=== PATIENT | female | born 1960 ===

== ENCOUNTER 2017-07-17 04:14 | Inpatient (IN) | payer OTHER ==
[2017-07-17] MEDS ORDERED: Metoclopramide 10 MG/2 ML SDV IVPUSH ONE (04:32)
[2017-07-17] MEDS ORDERED: diphenhydrAMINE 50 MG/ML SDV IVPUSH ONE (04:32)
--- NOTE | 2017-07-17 04:32 | EDM.PDOC ---
ED HPI GENERAL MEDICAL PROBLEM - General Chief Complaint: Neuro Symptoms/Deficits Stated Complaint: [facility] Time Seen by Provider: 07/17/17 04:25 Source of Information: Reports: Patient History Limitations: Reports: No Limitations - History of Present Illness INITIAL COMMENTS - FREE TEXT/NARRATIVE: 57-year-old female arrives in the ED per ambulance after she summoned them to her home in [place]. Patient states she awoke to get up to go to the bathroom but developed sudden onset of severe spinning of the room and had to lay back down. She states she then started vomiting. She called her brother for help and he arrives with her. She has never had any vertigo symptoms like this before. No recent falls or closed head injuries. She's had a right upper molar tooth extracted recently by the dentist due to an abscess formation and no antibiotics were used. She does have a headache which she grades 4-5. No neck pain. She prefers to lie still with her eyes closed on the right side. If she doesn't move the vertigo seems to settle. She did vomit once during movement of her head to the midline while in the ED on my examination. Emesis is bilious. Onset: Today Onset Date: 07/17/17 Onset Time: 03:40 Duration: Minutes: Location: Reports: Generalized Quality: Reports: Other Severity: Severe (Vertigo with intractable nausea and vomiting) Improves with: Reports: Rest (Holding really still controls the vertigo.) Worsens with: Reports: Movement (Any movement of the head sets it off with almost immediate nausea vomiting) Context: Reports: Other (Awoken from sleep with current symptoms.). Denies: Activity, Exercise, Lifting, Sick Contact, Trauma Associated Symptoms: Reports: Cough, Nausea/Vomiting (Recurrently since the onset of the vertigo.). Denies: Confusion, Chest Pain, Diaphoresis, Fever/ Chills, Headaches, Loss of Appetite, Malaise, Rash, Seizure, Shortness of Breath , Syncope Treatments LAST TRIMMER: Reports: Other (see below) (She was given initially Zofran ODT 4 mg and then given 4 mg IV as well by paramedics en route to the hospital. Headache has not seemed to help her vertigo at all.) Headache Pain Score (Numeric/FACES): 4 - Related Data Allergies Allergy/AdvReac Type Severity Reaction Status Date / Time Penicillins Allergy Hives Verified 07/17/17 04:25 Home Meds: Home Meds . [No Known Home Meds] 07/17/17 [History] Past Medical History HEENT History: Reports: Other (See Below) (Recent dental abscess treated by extraction of the tooth right upper molar.) Social & Family History - Living Situation & Occupation Living situation: Reports: Single, Occupation: Retired ED ROS GENERAL - Review of Systems Review Of Systems: See Below Constitutional: Reports: Malaise, Fatigue, Decreased Appetite (Because of infected tooth.). Denies: Fever, Chills HEENT: Reports: Dental Pain (Still has pain at site of recent dental extraction 5 days ago.), Vertigo Respiratory: Reports: Cough Cardiovascular: Denies: Chest Pain, Blood Pressure Problem, Claudication, Dyspnea on Exertion, Edema, Lightheadedness, Orthopnea, Palpitations Endocrine: Reports: No Symptoms GI/Abdominal: Reports: Nausea, Vomiting (Vomiting with vertigo symptoms.) : Reports: No Symptoms Musculoskeletal: Reports: Joint Pain (Back and knees at times.) Skin: Reports: No Symptoms Neurological: Reports: Dizziness, Other (Has not attempted to walk because she doesn't feel she would be able to do so.). Denies: Pre-Existing Deficit, Seizure, Syncope, Tingling, Trouble Speaking, Weakness Psychiatric: Reports: No Symptoms Hematologic/Lymphatic: Reports: No Symptoms Immunologic: Reports: No Symptoms ED EXAM, NEURO - Physical Exam Exam: See Below Exam Limited By: Physical Impairment (Prefers to lie very still in the right lateral decubitus position with her eyes closed to prevent vertigo symptoms.) General Appearance: Moderate Distress (Appears acutely ill.) Eye Exam: Bilateral Eye: Nystagmus (Worse when looking to the right and upwards. ), PERRL Ears: Normal External Exam, Normal TMs Throat/Mouth: Normal Inspection, Normal Lips, Normal Oropharynx Head Exam: Atraumatic, Normocephalic Neck: Normal Inspection. No: Full Range of Motion, Lymphadenopathy (R) Respiratory/Chest: No Respiratory Distress, Lungs Clear, Normal Breath Sounds, No Accessory Muscle Use Cardiovascular: Normal Peripheral Pulses, Regular Rate, Rhythm, No Edema, No Murmur, No Rub Neurological: Alert, Normal Mood/Affect, CN II-XII Intact, No Motor/Sensory Deficits, Oriented x 3. No: Normal Gait Extremities: Normal Inspection, Normal Range of Motion, Non-Tender, No Pedal Edema Psychiatric: Normal Affect, Normal Mood Skin Exam: Warm, Dry, Intact, Normal Color, No Rash Course - Vital Signs Last Recorded V/S: Last Vital Signs Temp 36.1 C 07/17/17 04:20 Pulse 80 07/17/17 04:20 Resp 18 07/17/17 04:20 BP 120/75 07/17/17 04:20 Pulse Ox 90 L 07/17/17 04:20 - Orders/Labs/Meds Orders: Active Orders 24 hr Category Date Time Status Head wo Cont [CT] Stat Exams 07/17/17 05:24 Taken Dextrose 5%-0.9% NaCl [Dextrose 5%-Normal Saline] 1,000 Med 07/17/17 04:45 Active ml IV ASDIRECTED Medication Orders Dextrose/Sodium Chloride (Dextrose 5%-Normal Saline) 1,000 mls @ 150 mls/hr IV ASDIRECTED DIMAS Last Admin: 07/17/17 04:42 Dose: 150 mls/hr Labs: Laboratory Tests 07/17/17 07/17/17 Range/Units 04:45 04:45 WBC 10.46 H (3.98-10.04) K/mm3 RBC 4.44 (3.98-5.22) M/mm3 Hgb 13.3 (11.2-15.7) gm/L Hct 40.1 (34.1-44.9) % MCV 90.3 (79.4-94.8) fl MCH 30.0 (25.6-32.2) pg MCHC 33.2 (32.2-35.5) g/dl RDW Std Deviation 43.5 (36.4-46.3) fL Plt Count 334 (182-369) K/mm3 MPV 9.5 (9.4-12.3) fl Neutrophils % (Manual) 65 H (40-60) % Band Neutrophils % 0 (0-10) % Lymphocytes % (Manual) 32 (20-40) % Atypical Lymphs % 0 % Monocytes % (Manual) 3 (2-10) % Eosinophils % (Manual) 0 L (0.7-5.8) % Basophils % (Manual) 0 L (0.1-1.2) Metamyelocytes % 0 Myelocytes % 0 Promyelocytes % 0 Blast Cells % 0 Nucleated RBCs 0.0 % WBC Morphology Comment Platelet Estimate Adequate RBC Morph Comment Normal Sodium 143 (136-145) mEq/L Potassium 3.7 (3.5-5.1) mEq/L Chloride 108 H (98-107) mEq/L Carbon Dioxide 29 (21-32) mEq/L Anion Gap 9.7 (5-15) BUN 19 H (7-18) mg/dL Creatinine 0.7 (0.55-1.02) mg/dL Est Cr Clr Drug Dosing 75.65 mL/min Estimated GFR (MDRD) > 60 (>60) mL/min BUN/Creatinine Ratio 27.1 H (14-18) Glucose 118 H (74-106) mg/dL Calcium 9.1 (8.5-10.1) mg/dL Magnesium 2.0 (1.8-2.4) mg/dl Total Bilirubin 0.3 (0.2-1.0) mg/dL AST 21 (15-37) U/L ALT 28 (14-59) U/L Alkaline Phosphatase 70 (46-116) U/L C-Reactive Protein < 0.2 (<1.0) mg/dL Total Protein 6.5 (6.4-8.2) g/dl Albumin 3.5 (3.4-5.0) g/dl Globulin 3.0 gm/dL Albumin/Globulin Ratio 1.2 (1-2) Meds: Medications Generic Name Dose Route Start Last Admin Trade Name Freq PRN Reason Stop Dose Admin Dextrose/Sodium Chloride 1,000 mls @ 150 mls/hr 07/17/17 04:45 07/17/17 04:42 Dextrose 5%-Normal Saline IV 150 mls/hr ASDIRECTED DIMAS Administration Discontinued Medications Generic Name Dose Route Start Last Admin Trade Name Freq PRN Reason Stop Dose Admin Diphenhydramine HCl 25 mg 07/17/17 04:32 07/17/17 04:48 Benadryl IVPUSH 07/17/17 04:33 25 mg ONETIME ONE Administration Meclizine HCl 25 mg 07/17/17 06:01 07/17/17 06:17 Antivert PO 07/17/17 06:02 25 mg ONETIME ONE Administration Metoclopramide HCl 7.5 mg 07/17/17 04:32 07/17/17 04:46 Reglan IVPUSH 07/17/17 04:33 7.5 mg ONETIME ONE Administration - Radiology Interpretation Free Text/Narrative:: 57-year-old female presents to the ED per ambulance with acute onset of severe vertigo with associated nausea and vomiting. Examination is difficult because of any movement causes her to start dry heaving and retching. She has received Zofran 4 mg ODT sublingually as well as 4 mg IV en route to the hospital by the paramedics with no effect. From what I could assess she has significant nystagmus on looking to the right side. There is mild nystagmus on looking to the left that was not sustained. She does have a mild headache. Not able to complete the neuro exam such as rapid alternating movements and finger to nose assessment due to current symptoms. Plan Reglan 7.5 mg IV with Benadryl 25 mg IV to stave off any dystonic reaction. Will attempt neuro exam once vertigo seems to stabilize. I do have concerns with headache that she may have central nervous system induced vertigo. Vital signs are otherwise stable. - Re-Assessments/Exams Free Text/Narrative Re-Assessment/Exam: 07/17/17 05:23 she is able to roll onto her back with mild dizziness and no further vomiting. Still not keen on opening her eyes as this seems to set off the vertigo. She could touch her nose with her eyes closed with her index finger bilaterally. No soaps nerve palsy appreciated. The stone concerned about a central nervous system component to her vertigo. CT head will be ordered. 07/17/17 06:02 CT scan of the brain appears to be normal particular the cerebellum shows no sign of infarction or bleed. Patient still prefers to lie flatter back with her eyes closed however she is much better than she was with no further retching or vomiting. Going to give her meclizine 25 mg by mouth at this time. We'll wait another half an hour and see if she can actually sit up and navigate 07/17/17 07:24 attempts to get her up to ambulate failed miserably. This was a sat up she became so vertiginous and started retching again. She was simply therefore laid back down. She will require admission to the hospital and I did speak with Dr. Blanca road contractor hospitalist in this regard. Dr. Blanca is requested that we order an MRI to help clarify that she has not had a cerebellar infarct. I concur with this and I did order the test will be discussed with MRI when they can fit her in. In the meantime she will be admitted to the med surgery floor on telemetry. I have spoken with the patient and at this time she is much more alert and she is better than she was when she came into the hospital. She still prefers to keep her eyes closed however going to give her Ativan 0.5 mg in the hopes of stabilizing her balance mechanism a little further. Departure - Departure Time of Disposition: 07:28 Disposition: Admitted As Inpatient 65 Condition: Fair Clinical Impression: Vertigo - Discharge Information Referrals: Cindy Zamudio MD [Primary Care Provider] - Forms: ED Department Discharge - My Orders Last 24 Hours: My Active Orders 07/17/17 04:45 Dextrose 5%-0.9% NaCl [Dextrose 5%-Normal Saline] 1,000 ml IV ASDIRECTED 07/17/17 05:24 Head wo Cont [CT] Stat - Assessment/Plan Last 24 Hours: My Active Orders 07/17/17 04:45 Dextrose 5%-0.9% NaCl [Dextrose 5%-Normal Saline] 1,000 ml IV ASDIRECTED 07/17/17 05:24 Head wo Cont [CT] Stat
[2017-07-17] MEDS: Dextrose 5%-0.9% NaCl 1,000 ML IV SCH ×3 (04:42→20:07)
[2017-07-17] MEDS ORDERED: LORazepam 2 MG/ML MDV IVPUSH ONE (07:24)
--- NOTE | 2017-07-17 07:38 | CT ---
Head CT Technique: Multiple axial sections through the brain were obtained. Intravenous contrast was not utilized. Comparison: No prior intracranial imaging. Findings: Ventricles along with basal cisterns and sulci over the convexities are within normal limits for the patient's age. Minimal diminished density is noted within both basal ganglia. No other abnormal parenchymal densities are seen. No evidence of intracranial hemorrhage. No midline shift or mass effect is seen. Bone window settings were reviewed which show minimal mucosal thickening within the ethmoid sinuses. No acute calvarial abnormality is seen. Impression: 1. Minimal areas of diminished density within the basal ganglia most likely due to minimal small vessel ischemic demyelination change. 2. Minimal sinus findings which are incidental. 3. Nothing acute is seen on noncontrast head CT study. Diagnostic code #2 I agree with preliminary report issued by [facility] ([facility] preliminary report dictated on 07/17/17, 7:03 AM Central Time)
[2017-07-17] MEDS ORDERED: Ondansetron 4 MG/2 ML SDV IVPUSH ONE (08:31)
[2017-07-17] MEDS ORDERED: Ondansetron 4 MG/2 ML SDV ONE (08:36)
[2017-07-17] MEDS ORDERED: Promethazine 12.5 MG in Sodium Chloride 0.9% 50 ML IV PRN (09:28)
[2017-07-17] MEDS ORDERED: Ondansetron 4 MG/2 ML SDV IVPUSH PRN (09:29)
[2017-07-17] MEDS ORDERED: Scopolamine 1.5 MG Transdermal Patch TRDERM PRN (09:31)
--- NOTE | 2017-07-17 09:34 | MR ---
MRI brain Technique: T1 sagittal; T2, T2 FLAIR, T1 and diffusion axial; T1 FLAIR coronal; T2 gradient echo axial images through the internal auditory canals were also obtained. Comparison: Prior head CT study performed earlier on the same day. Findings: Contents of the internal auditory canals appear within normal limits. Ventricles along with basal cisterns and sulci over the convexities are within normal limits. Very minimal areas of increased signal seen within the subcortical white matter within the parietal regions on both sides near the junction to the basal ganglia. No other abnormal signal is seen within the brain parenchyma. Normal signal void is seen within the major cerebral arteries within the skull base. Minimal mucosal thickening is seen within the ethmoid sinuses. No acute diffusion abnormalities are seen. Impression: 1. Minimal areas of increased signal within the subcortical white matter within the parietal regions believed to correlate to findings on previous CT. These findings are felt to be incidental. No other abnormal signal is seen within the brain parenchyma. No acute diffusion abnormalities are seen. Diagnostic code #2
[2017-07-17] MEDS: Nicotine 21 MG/24 Hr Patch TRDERM SCH (11:49)
[2017-07-17] MEDS: Ketorolac 15 MG/ML SDV IVPUSH SCH ×3 (11:49→23:36)
[2017-07-17] MEDS: Clindamycin Phosphate 900 MG in Sodium Chloride 0.9% 100 ML IV SCH ×3 (12:08→23:36)
--- NOTE | 2017-07-17 16:00 | PCM.HP ---
H&P History of Present Illness - General Date of Service: 07/17/17 Admit Problem/Dx: Admission Diagnosis/Problem Admission Diagnosis/Problem Vertigo Source of Information: Family, Provider History Limitations: Reports: No Limitations - History of Present Illness Initial Comments - Free Text/Narative: 57 year old female with sudden onset of veritgo after awakening to use the rest room. N/V during eipsodes, associated with FAROOQ. No recent trauma, no change in vision, no light sensitivity. MRI has been requested and is pending. MS telemetry admission for vertigo/CVA work up. Additionally ATB coverage after an extracted tooth will be initiated. Onset of Symptoms: Reports: Sudden Symptom Onset Date: 07/17/17 Duration of Symptoms: Reports: Hour(s):, Getting Worse Location: Reports: Head, Face Severity: Moderate Improves with: Reports: Medication Worsens with: Reports: Movement Associated Symptoms: Reports: Malaise, Nausea/Vomiting, Weakness Headache Pain Score (Numeric/FACES): 4 - Related Data Allergies/Adverse Reactions: Allergies Allergy/AdvReac Type Severity Reaction Status Date / Time Penicillins Allergy Hives Verified 07/17/17 04:25 Home Medications: Home Meds . 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 Carpal tunnel surgery right hand about 15 years ago. Social & Family History - Family History Family Medical History: Noncontributory - Tobacco Use Smoking Status *Q: Current Every Day Smoker Years of Tobacco use: 30 Packs/Tins Daily: 0.5 Used Tobacco, but Quit: No Tobacco Use Comment: Pt. has tobacco cessation information at home. - Caffeine Use Caffeine Use: Reports: Coffee - Recreational Drug Use Recreational Drug Use: No - Living Situation & Occupation Living situation: Reports: Single, Occupation: Retired H&P Review of Systems - Review of Systems: Review Of Systems: See Below General: Reports: Malaise, Weakness, Decreased Appetite HEENT: Reports: Headaches, Vertigo Pulmonary: Reports: No Symptoms Cardiovascular: Reports: Lightheadedness Gastrointestinal: Reports: No Symptoms Genitourinary: Reports: No Symptoms Musculoskeletal: Reports: No Symptoms Skin: Reports: No Symptoms Psychiatric: Reports: No Symptoms Neurological: Reports: No Symptoms Hematologic/Lymphatic: Reports: No Symptoms Immunologic: Reports: No Symptoms Exam - Exam Exam: See Below - Vital Signs Vital Signs: Last Vital Signs Temp 36.7 C 07/17/17 15:33 Pulse 76 07/17/17 15:33 Resp 14 07/17/17 15:33 BP 110/82 07/17/17 15:33 Pulse Ox 92 L 07/17/17 15:33 Weight: 55.877 kg - Exam Quality Assessment: DVT Prophylaxis General: Lethargic HEENT: Pupils Equal, Pupils Reactive, Other (nystagmus), PERRLA Neck: Trachea Midline Lungs: Normal Respiratory Effort Cardiovascular: Regular Rate, Regular Rhythm GI/Abdominal Exam: Normal Bowel Sounds, Soft, Non-Tender, No Organomegaly, No Distention (Female) Exam: Deferred Rectal (Female) Exam: Normal Exam Back Exam: Normal Inspection Extremities: Normal Inspection Skin: Warm Neurological: Cranial Nerves Intact Neuro Extensive - Mental Status: Other (lethargic, uncomfortable, nauseated.) Neuro Extensive - Motor, Sensory, Reflexes: CN II-XII Intact Psychiatric: Other (see above) - Patient Data Result Diagrams: 07/17/17 04:45 07/17/17 04:45 *Q Meaningful Use (ADM) - VTE *Q VTE Criteria *Q: - Stroke *Q Stroke Criteria *Q: - AMI *Q AMI Criteria *Q: - Problem List (1) Post operative infected tooth socket SNOMED Code(s): 61450958 ICD Code: T81.4XXA - INFECTION FOLLOWING A PROCEDURE, INITIAL ENCOUNTER; M27.3 - ALVEOLITIS OF JAWS Status: Acute Current Visit: Yes (2) Tobacco abuse SNOMED Code(s): 383580807 ICD Code: Z72.0 - TOBACCO USE Status: Acute Current Visit: Yes (3) Vertigo SNOMED Code(s): 145687157 ICD Code: R42 - DIZZINESS AND GIDDINESS Status: Acute Current Visit: Yes Problem List Initiated/Reviewed/Updated: Yes Orders Last 24hrs: Active Orders 24 hr Category Date Time Status Activity as Tolerated [RC] .Routine Care 07/17/17 11:15 Active Antiembolic Devices [RC] PER UNIT ROUTINE Care 07/17/17 12:17 Active EKG Documentation Completion [RC] STAT Care 07/17/17 07:28 Active Vital Signs [RC] Q4HR Care 07/17/17 11:13 Active Consult to Occupational Therapy [OT Evaluation and Cons 07/17/17 11:06 Active Treatment] [CONS] Routine Consult to Physical Therapy [PT Evaluation and Cons 07/17/17 11:06 Active Treatment] [CONS] Routine Consult to Lapel Padder [CONS] Routine Cons 07/17/17 11:06 Active NPO [Nothing Per Oral Diet] [DIET] Diet 07/17/17 Dinner Active CULTURE BLOOD [BC] Stat Lab 07/17/17 12:00 Received CULTURE BLOOD [BC] Stat Lab 07/17/17 12:07 Received Clindamycin Phosphate [Cleocin] 900 mg Med 07/17/17 11:15 Active Sodium Chloride 0.9% [Normal Saline] 100 ml IV Q6H Ketorolac [Toradol] Med 07/17/17 11:30 Active 15 mg IVPUSH Q6H Nicotine [Habitrol] Med 07/17/17 11:30 Active 21 mg TRDERM DAILY Ondansetron [Zofran] Med 07/17/17 09:29 Active 4 mg IVPUSH Q8H PRN Promethazine [Phenergan] 12.5 mg Med 07/17/17 09:28 Active Sodium Chloride 0.9% [Normal Saline] 50 ml IV Q6H Remove Patch Med 07/17/17 09:00 Active 0 ea TRDERM DAILY Scopolamine [Transderm-Scop] Med 07/17/17 09:31 Active 1.5 mg TRDERM Q72H PRN Blood Culture x2 Reflex Set [OM.PC] Stat Oth 07/17/17 11:12 Ordered Oral Care [OM.PC] Routine Oth 07/17/17 11:13 Ordered RALPH Hose [Antiembolic Hose] [OM.PC] Routine Oth 07/17/17 12:17 Ordered Code Status [Resuscitation Status] Routine Resus Stat 07/17/17 11:08 Ordered Medication Orders Dextrose/Sodium Chloride (Dextrose 5%-Normal Saline) 1,000 mls @ 150 mls/hr IV ASDIRECTED DIMAS Last Admin: 07/17/17 13:10 Dose: 150 mls/hr Infusion: 07/17/17 11:23 Dose: 150 mls/hr Admin: 07/17/17 04:42 Dose: 150 mls/hr Promethazine HCl 12.5 mg/ (Sodium Chloride) 50.5 mls @ 100 mls/hr IV Q6H PRN PRN Reason: Nausea Clindamycin Phosphate 900 mg/ (Sodium Chloride) 106 mls @ 100 mls/hr IV Q6H [facility] Last Admin: 07/17/17 12:08 Dose: 100 mls/hr Ketorolac Tromethamine (Toradol) 15 mg IVPUSH Q6H [facility] Stop: 07/18/17 17:31 Last Admin: 07/17/17 11:49 Dose: 15 mg Miscellaneous Information (Remove Patch) 0 ea TRDERM DAILY [facility] Last Admin: 07/17/17 11:51 Dose: Not Given Nicotine (Habitrol) 21 mg TRDERM DAILY [facility] Last Admin: 07/17/17 11:49 Dose: Not Given Ondansetron HCl (Zofran) 4 mg IVPUSH Q8H PRN PRN Reason: Nausea Last Admin: 07/17/17 09:43 Dose: 4 mg Scopolamine (Transderm-Scop) 1.5 mg TRDERM Q72H PRN PRN Reason: Nausea Last Admin: 07/17/17 10:15 Dose: 1.5 mg Assessment/Plan Comment:: Impression: Moderate-severe vertigo Query CVA, cerebellar S/P tooth extraction with abscess without antibiotics Tobacco abuse Plan: MRI Neurochecks PT re: vertigo Clindamycin IV IVF Clear liquids CVA protocol NSAID Habitrol DVT/GI prophylaxis SW/PT/OT
[2017-07-17] MEDS ORDERED: Scopolamine 1.5 MG Transdermal Patch TRDERM SCH (18:00)
[2017-07-18] MEDS: Dextrose 5%-0.9% NaCl 1,000 ML IV SCH (04:18)
[2017-07-18] MEDS: Clindamycin Phosphate 900 MG in Sodium Chloride 0.9% 100 ML IV SCH ×4 (04:18→23:19)
[2017-07-18] MEDS: Ketorolac 15 MG/ML SDV IVPUSH SCH ×3 (05:38→16:29)
[2017-07-18] MEDS: Nicotine 21 MG/24 Hr Patch TRDERM SCH (08:14)
--- NOTE | 2017-07-18 14:52 | PCM.PN ---
- General Info Date of Service: 07/18/17 Admission Dx/Problem (Free Text): Admission Diagnosis/Problem Admission Diagnosis/Problem Vertigo Mikayla is seen twice today by this provider. Early this morning she is still nauseous but has not vomited since [employer] yesterday. She has to close one eye so she is not dizzy/spinning. She is drinking but feels scared to drink too much for fear of vomiting again. No abd pain or diarrhea. She is urinating, up with 1 assist due to dizziness and unsteadiness. She denies any overhead work, recent cold or URI symptoms, no prior vertigo, no hx of headaches. She did have dental work done recently, see admission H&P for details and is now on clindamycin to cover any dental infection. Second visit today was a few hours after PT session with genesis-hallpike maneuvers. Patient is significantly improved. Was able to tolerate shower with minimal dizziness/vertigo symptoms. CT and MRI of brain both done yesterday are without any acute changes. Functional Status: Reports: Pain Controlled (Denies c/o pain), Tolerating Diet ( clear liquids), Ambulating (with assist d/t unsteadiness), Urinating - Review of Systems General: Reports: Weakness. Denies: Fever HEENT: Reports: Visual Changes (with both eyes open she is unable to focus and becomes very dizzy, if she closes one she is able to focus and "see better". ). Denies: Ear Pain, Eye Pain, Post Nasal Drip, Sinus Congestion, Sore Throat, Rhinitis Pulmonary: Reports: No Symptoms Cardiovascular: Reports: No Symptoms Gastrointestinal: Reports: Nausea (mild but much improved from yesterday/last night). Denies: Diarrhea, Vomiting Genitourinary: Reports: No Symptoms Musculoskeletal: Reports: No Symptoms. Denies: Neck Pain, Back Pain Neurological: Reports: Dizziness (spinning), Difficulty Walking, Weakness. Denies: Confusion, Headache, Numbness, Tingling, Trouble Speaking Psychiatric: Reports: No Symptoms - Patient Data Vitals - Most Recent: Last Vital Signs Temp 98.2 F 07/18/17 13:25 Pulse 61 07/18/17 13:25 Resp 16 07/18/17 13:25 BP 135/81 07/18/17 13:31 Pulse Ox 95 07/18/17 13:25 Weight - Most Recent: 127 lb 9.6 oz I&O - Last 24 Hours: Intake & Output 07/17/17 07/18/17 07/18/17 22:59 06:59 14:59 Intake Total 1431 1900 Output Total 400 Balance 1031 1900 Lab Results Last 24 Hours: Laboratory Results - last 24 hr 07/18/17 07/18/17 Range/Units 07:40 07:40 WBC 8.62 (3.98-10.04) K/mm3 RBC 3.86 L (3.98-5.22) M/mm3 Hgb 11.6 (11.2-15.7) gm/L Hct 35.5 (34.1-44.9) % MCV 92.0 (79.4-94.8) fl MCH 30.1 (25.6-32.2) pg MCHC 32.7 (32.2-35.5) g/dl RDW Std Deviation 44.5 (36.4-46.3) fL Plt Count 343 (182-369) K/mm3 MPV 9.3 L (9.4-12.3) fl Neut % (Auto) 56.0 (34.0-71.1) % Lymph % (Auto) 34.8 (19.3-51.7) % [place] % (Auto) 8.7 (4.7-12.5) % Eos % (Auto) 0.3 L (0.7-5.8) Baso % (Auto) 0.1 (0.1-1.2) % Neut # (Auto) 4.82 (1.56-6.13) K/mm3 Lymph # (Auto) 3.00 (1.18-3.74) K/mm3 [place] # (Auto) 0.75 H (0.24-0.36) K/mm3 Eos # (Auto) 0.03 L (0.04-0.36) K/mm3 Baso # (Auto) 0.01 (0.01-0.08) K/mm3 Sodium 148 H (136-145) mEq/L Potassium 3.6 (3.5-5.1) mEq/L Chloride 116 H (98-107) mEq/L Carbon Dioxide 26 (21-32) mEq/L Anion Gap 9.6 (5-15) BUN 19 H (7-18) mg/dL Creatinine 0.7 (0.55-1.02) mg/dL Est Cr Clr Drug Dosing 75.65 mL/min Estimated GFR (MDRD) > 60 (>60) mL/min BUN/Creatinine Ratio 27.1 H (14-18) Glucose 108 H (74-106) mg/dL Calcium 8.2 L (8.5-10.1) mg/dL Magnesium 1.9 (1.8-2.4) mg/dl C-Reactive Protein < 0.2 (<1.0) mg/dL Matheus Results Last 24 Hours: Microbiology 07/17/17 12:00 Aerobic Blood Culture - Preliminary Blood - Venous NO GROWTH AFTER 1 DAY Anaerobic Blood Culture - Preliminary NO GROWTH AFTER 1 DAY 07/17/17 12:07 Aerobic Blood Culture - Preliminary Blood - Venous - Lab Draw NO GROWTH AFTER 1 DAY Anaerobic Blood Culture - Preliminary NO GROWTH AFTER 1 DAY Med Orders - Current: Current Medications Promethazine HCl 12.5 mg/ (Sodium Chloride) 50.5 mls @ 100 mls/hr IV Q6H PRN PRN Reason: Nausea Clindamycin Phosphate 900 mg/ (Sodium Chloride) 106 mls @ 100 mls/hr IV Q6H [facility] Last Admin: 07/18/17 10:40 Dose: 100 mls/hr Ketorolac Tromethamine (Toradol) 15 mg IVPUSH Q6H [facility] Stop: 07/18/17 17:31 Last Admin: 07/18/17 10:39 Dose: 15 mg Miscellaneous Information (Remove Patch) 0 ea TRDERM DAILY [facility] Last Admin: 07/18/17 08:14 Dose: Not Given Miscellaneous Information (Remove Patch) 1 ea TRDERM Q72H [facility] Nicotine (Habitrol) 21 mg TRDERM DAILY [facility] Last Admin: 07/18/17 08:14 Dose: Not Given Ondansetron HCl (Zofran) 4 mg IVPUSH Q8H PRN PRN Reason: Nausea Last Admin: 07/17/17 09:43 Dose: 4 mg Scopolamine (Transderm-Scop) 1.5 mg TRDERM Q72H [facility] Last Admin: 07/17/17 18:04 Dose: Not Given Discontinued Medications Diphenhydramine HCl (Benadryl) 25 mg IVPUSH ONETIME ONE Stop: 07/17/17 04:33 Last Admin: 07/17/17 04:48 Dose: 25 mg Dextrose/Sodium Chloride (Dextrose 5%-Normal Saline) 1,000 mls @ 150 mls/hr IV ASDIRECTED [facility] Last Admin: 07/18/17 04:18 Dose: 150 mls/hr Lorazepam (Ativan) 0.5 mg IVPUSH ONETIME ONE Stop: 07/17/17 07:25 Last Admin: 07/17/17 08:40 Dose: Not Given Meclizine HCl (Antivert) 25 mg PO ONETIME ONE Stop: 07/17/17 06:02 Last Admin: 07/17/17 06:17 Dose: 25 mg Metoclopramide HCl (Reglan) 7.5 mg IVPUSH ONETIME ONE Stop: 07/17/17 04:33 Last Admin: 07/17/17 04:46 Dose: 7.5 mg Ondansetron HCl (Zofran) 4 mg IVPUSH ONETIME ONE Stop: 07/17/17 08:32 Last Admin: 07/17/17 08:34 Dose: 4 mg Ondansetron HCl (Zofran) Confirm Administered Dose 4 mg .ROUTE .STK-MED ONE Stop: 07/17/17 08:37 Last Admin: 07/17/17 08:35 Dose: Not Given Scopolamine (Transderm-Scop) 1.5 mg TRDERM Q72H PRN PRN Reason: Nausea Last Admin: 07/17/17 10:15 Dose: 1.5 mg - Exam Quality Assessment: DVT Prophylaxis General: Alert, Oriented, Cooperative, No Acute Distress HEENT: Pupils Equal, Mucous Membr. Moist/[place] Neck: Supple, No JVD Lungs: Clear to Auscultation, Normal Respiratory Effort Cardiovascular: Regular Rate, Regular Rhythm, No Murmurs GI/Abdominal Exam: Normal Bowel Sounds, Soft, Non-Tender (Female) Exam: Deferred Extremities: Normal Inspection, No Pedal Edema, Normal Capillary Refill Peripheral Pulses: 2+: Dorsalis Pedis (L), Dorsalis Pedis (R) Neurological: Normal Speech, Normal Tone, Strength Equal Bilateral Psy/Mental Status: Alert, Normal Affect, Normal Mood - Problem List & Annotations (1) Vertigo SNOMED Code(s): 236625639 Code(s): R42 - DIZZINESS AND GIDDINESS Status: Acute Priority: High Current Visit: Yes (2) Post operative infected tooth socket SNOMED Code(s): 19897820 Code(s): T81.4XXA - INFECTION FOLLOWING A PROCEDURE, INITIAL ENCOUNTER; M27.3 - ALVEOLITIS OF JAWS Status: Acute Priority: High Current Visit: Yes (3) Tobacco abuse SNOMED Code(s): 327946675 Code(s): Z72.0 - TOBACCO USE Status: Acute Priority: High Current Visit : Yes - Problem List Review Problem List Initiated/Reviewed/Updated: Yes - My Orders Last 24 Hours: My Active Orders 07/18/17 07:44 PT Evaluation and Treatment [CONS] Routine 07/18/17 Lunch Clear Liquid Diet [DIET] - Plan Plan:: Impression: Moderate-severe vertigo--improved after PT maneuvers -With associated nausea and vomiting, now resolved Query CVA, cerebellar -Negative head CT and brain MRI for CVA -Carotid US ordered S/P tooth extraction with abscess without antibiotics -Placed on clindamycin -Probiotic Tobacco abuse -Cessation recommended and education to be given Plan: MRI- negative as above Neurochecks- have been unremarkable PT re: vertigo--maneuvers have been helpful after 1 treatment, she is able to have both eyes open without severe dizziness/spinning, no nausea. Clindamycin IV Clear liquids- advance to full liquid, if tolerates can have regular diet in the morning CVA protocol NSAID Habitrol DVT/GI prophylaxis PT/OT CM/SW for assist with DC planning. Dr. Davalos is PCP with [facility] in [place] Patient is Full Code status.
[2017-07-18] MEDS ORDERED: hydrALAZINE 20 MG/ML SDV IVPUSH PRN (18:13)
[2017-07-18] MEDS: Famotidine 20 MG Tab PO SCH (20:33)
[2017-07-18] MEDS: Saccharomyces Boulardii (Probiotic) 250 MG Cap PO SCH (20:33)
[2017-07-19] MEDS: Clindamycin Phosphate 900 MG in Sodium Chloride 0.9% 100 ML IV SCH (05:21)
--- NOTE | 2017-07-19 08:46 | PCM.DCSUM1 ---
Discharge Summary - Hospital Course Free Text/Narrative:: 57-year-old female arrives in the ED per ambulance after she summoned them to her home in [place]. Patient states she awoke to get up to go to the bathroom but developed sudden onset of severe spinning of the room and had to lay back down. She states she then started vomiting. She called her brother for help and he arrives with her. She has never had any vertigo symptoms like this before. No recent falls or closed head injuries. She's had a right upper molar tooth extracted recently by the dentist due to an abscess formation and no antibiotics were used. She does have a headache which she grades 4-5. No neck pain. She prefers to lie still with her eyes closed on the right side. If she doesn't move the vertigo seems to settle. She did vomit once during movement of her head to the midline while in the ED on my examination. Emesis is bilious. ED eval with Head CT is negative. Labs essentially unremarkable. VSS. Hospitalist service is consulted for admission for vertigo. MRI of brain was ordered and unremarkable for acute findings. She was hydrated, started on IV clindamycin and toradol for recent dental work/extraction, placed on scopolamine patch and antiemetics. She had minimal relief overnight. PT eval was ordered for vertigo eval with + genesis hallpike maneuvers. She had dramatic improvement after one treatment, had one more treatment the following morning and was doing very well. She will be discharged home today with brother; dc medications of clindamycin PO x 5 more days, motrin, meclizine. She is to follow up with PCP Dr. Davalos within one week, PT if neeed for any recurrence of the vertigo/BPPV. Smoking cessation discussed and advised and discharged with nicotine patch rx. - Discharge Data Discharge Date: 07/19/17 Discharge Disposition: Home, Self-Care 01 Condition: Good - Discharge Diagnosis/Problem(s) (1) Vertigo SNOMED Code(s): 017109636 ICD Code: R42 - DIZZINESS AND GIDDINESS Status: Acute Priority: High Current Visit: Yes (2) Post operative infected tooth socket SNOMED Code(s): 68296319 ICD Code: T81.4XXA - INFECTION FOLLOWING A PROCEDURE, INITIAL ENCOUNTER; M27.3 - ALVEOLITIS OF JAWS Status: Acute Priority: High Current Visit: Yes (3) Tobacco abuse SNOMED Code(s): 373046105 ICD Code: Z72.0 - TOBACCO USE Status: Chronic Priority: High Current Visit: Yes - Patient Summary/Data Operative Procedure(s) Performed: None Complications: None Consults: Consultations 07/17/17 11:06 Consult to Occupational Therapy [OT Evaluation and Treatment] [CONS] Routine Consult to Physical Therapy [PT Evaluation and Treatment] [CONS] Routine Consult to Stop Attacher [CONS] Routine 07/18/17 07:44 PT Evaluation and Treatment [CONS] Routine --vertigo eval Labs Pending at D/C: None Recommended Follow-up Testing/Procedures: Follow up with Physical Therapy if needed and if return of dizziness/vertigo Avoid overhead work and activities as this can trigger vertigo Continue on antibiotic and ibuprofen for dental infection; recommend take probiotic once daily to help restore normal gut bacteria with taking antibiotic Follow up with your dentist as recommended/scheduled after dental work/ procedure. Planned Operative Procedure(s) after DC: None Hospital Course: As above - Patient Instructions Diet: Usual Diet as Tolerated, Drink 8-10+ Glasses/Day Activity: As Tolerated Driving: May Drive Today Showering/Bathing: May Shower Notify Provider of: Fever, Increased Pain, Nausea and/or Vomiting - Discharge Plan Prescriptions/Med Rec: Clindamycin HCl 300 mg PO TID #15 capsule HCTZ/Triamterene [Dyazide 25-37.5 MG] 2 each PO DAILY #30 cap Ibuprofen 600 mg PO TID PRN #40 tablet PRN Reason: dental infection/pain Meclizine [Antivert] 25 mg PO TID PRN #30 tablet PRN Reason: dizziness/vertigo Nicotine [Habitrol] 21 mg TRDERM DAILY #30 patch Home Medications: Home Meds Clindamycin HCl 300 mg PO TID #15 capsule 07/19/17 [Rx] HCTZ/Triamterene [Dyazide 25-37.5 MG] 2 each PO DAILY #30 cap 07/19/17 [Rx] Ibuprofen 600 mg PO TID PRN #40 tablet 07/19/17 [Rx] Meclizine [Antivert] 25 mg PO TID PRN #30 tablet 07/19/17 [Rx] Nicotine [Habitrol] 21 mg TRDERM DAILY #30 patch 07/19/17 [Rx] Patient Handouts: Vertigo, [id number], Dizziness, [id number] Forms: ED Department Discharge Referrals: Cindy Zamudio MD [Primary Care Provider] - - Discharge Summary/Plan Comment DC Time >30 min.: Yes (40 min) - General Info Date of Service: 07/19/17 Admission Dx/Problem (Free Text: Admission Diagnosis/Problem Admission Diagnosis/Problem Vertigo Mikayla is seen this morning; doing much better. Dizziness if improved to resolved , PT has been very helpful. Functional Status: Reports: Pain Controlled, Tolerating Diet, Ambulating, Urinating. Denies: New Symptoms - Review of Systems General: Reports: No Symptoms HEENT: Reports: No Symptoms Pulmonary: Reports: No Symptoms Cardiovascular: Reports: No Symptoms Gastrointestinal: Reports: No Symptoms. Denies: Nausea, Vomiting Genitourinary: Reports: No Symptoms Musculoskeletal: Reports: No Symptoms Skin: Reports: No Symptoms Neurological: Reports: No Symptoms. Denies: Dizziness, Headache Psychiatric: Reports: No Symptoms - Patient Data Vitals - Most Recent: Last Vital Signs Temp 97.9 F 07/19/17 05:31 Pulse 62 07/19/17 05:31 Resp 18 07/19/17 05:31 BP 124/89 07/19/17 05:31 Pulse Ox 92 L 07/19/17 05:31 Weight - Most Recent: 118 lb 11.2 oz I&O - Last 24 hours: Intake & Output 07/18/17 07/19/17 07/19/17 22:59 06:59 14:59 Intake Total 950 600 Output Total 1000 1400 Balance -50 -800 LETY Results - Last 24 hrs: Microbiology 07/17/17 12:00 Aerobic Blood Culture - Preliminary Blood - Venous NO GROWTH AFTER 1 DAY Anaerobic Blood Culture - Preliminary NO GROWTH AFTER 1 DAY 07/17/17 12:07 Aerobic Blood Culture - Preliminary Blood - Venous - Lab Draw NO GROWTH AFTER 1 DAY Anaerobic Blood Culture - Preliminary NO GROWTH AFTER 1 DAY Med Orders - Current: Current Medications Famotidine (Pepcid) 20 mg PO BID [facility] Last Admin: 07/18/17 20:33 Dose: 20 mg Hydralazine HCl (Apresoline) 20 mg IVPUSH Q6H PRN PRN Reason: Hypertension Promethazine HCl 12.5 mg/ (Sodium Chloride) 50.5 mls @ 100 mls/hr IV Q6H PRN PRN Reason: Nausea Clindamycin Phosphate 900 mg/ (Dextrose/Water) 106 mls @ 212 mls/hr IV Q6H [facility] Miscellaneous Information (Remove Patch) 0 ea TRDERM DAILY [facility] Last Admin: 07/18/17 08:14 Dose: Not Given Miscellaneous Information (Remove Patch) 1 ea TRDERM Q72H [facility] Nicotine (Habitrol) 21 mg TRDERM DAILY [facility] Last Admin: 07/18/17 08:14 Dose: Not Given Ondansetron HCl (Zofran) 4 mg IVPUSH Q8H PRN PRN Reason: Nausea Last Admin: 07/17/17 09:43 Dose: 4 mg Saccharomyces Boulardii (Florastor) 250 mg PO BID [facility] Last Admin: 07/18/17 20:33 Dose: 250 mg Scopolamine (Transderm-Scop) 1.5 mg TRDERM Q72H [facility] Last Admin: 07/17/17 18:04 Dose: Not Given Triamterene/HCTZ (Dyazide 25-37.5 Mg) 2 each PO DAILY [facility] Discontinued Medications Diphenhydramine HCl (Benadryl) 25 mg IVPUSH ONETIME ONE Stop: 07/17/17 04:33 Last Admin: 07/17/17 04:48 Dose: 25 mg Dextrose/Sodium Chloride (Dextrose 5%-Normal Saline) 1,000 mls @ 150 mls/hr IV ASDIRECTED [facility] Last Admin: 07/18/17 04:18 Dose: 150 mls/hr Clindamycin Phosphate 900 mg/ (Sodium Chloride) 106 mls @ 100 mls/hr IV Q6H [facility] Last Admin: 07/19/17 05:21 Dose: 100 mls/hr Ketorolac Tromethamine (Toradol) 15 mg IVPUSH Q6H [facility] Stop: 07/18/17 17:31 Last Admin: 07/18/17 16:29 Dose: 15 mg Lorazepam (Ativan) 0.5 mg IVPUSH ONETIME ONE Stop: 07/17/17 07:25 Last Admin: 07/17/17 08:40 Dose: Not Given Meclizine HCl (Antivert) 25 mg PO ONETIME ONE Stop: 07/17/17 06:02 Last Admin: 07/17/17 06:17 Dose: 25 mg Metoclopramide HCl (Reglan) 7.5 mg IVPUSH ONETIME ONE Stop: 07/17/17 04:33 Last Admin: 07/17/17 04:46 Dose: 7.5 mg Ondansetron HCl (Zofran) 4 mg IVPUSH ONETIME ONE Stop: 07/17/17 08:32 Last Admin: 07/17/17 08:34 Dose: 4 mg Ondansetron HCl (Zofran) Confirm Administered Dose 4 mg .ROUTE .STK-MED ONE Stop: 07/17/17 08:37 Last Admin: 07/17/17 08:35 Dose: Not Given Scopolamine (Transderm-Scop) 1.5 mg TRDERM Q72H PRN PRN Reason: Nausea Last Admin: 07/17/17 10:15 Dose: 1.5 mg - Exam Quality Assessment: Reports: DVT Prophylaxis General: Reports: Alert, Oriented, Cooperative, No Acute Distress HEENT: Reports: Pupils Equal, EOMI, Mucous Membr. Moist/[place] Neck: Reports: Supple Lungs: Reports: Clear to Auscultation, Normal Respiratory Effort Cardiovascular: Reports: Regular Rate, Regular Rhythm, No Murmurs GI/Abdominal Exam: Normal Bowel Sounds, Soft, Non-Tender (Female) Exam: Deferred Rectal (Female) Exam: Deferred Extremities: Normal Inspection, No Pedal Edema, Normal Capillary Refill Neurological: Reports: No New Focal Deficit, Normal Speech, Normal Tone, Strength Equal Bilateral Psy/Mental Status: Reports: Alert, Normal Affect, Normal Mood *Q Meaningful Use (DIS) - VTE *Q VTE Criteria *Q: - Stroke *Q Stroke Criteria *Q: - AMI *Q AMI Criteria *Q:
[2017-07-19] MEDS ORDERED: Hydrochlorothiazide/Triamterene 25-37.5 MG Cap PO SCH (09:00)
[2017-07-19] MEDS: Saccharomyces Boulardii (Probiotic) 250 MG Cap PO SCH (09:11)
[2017-07-19] MEDS: Famotidine 20 MG Tab PO SCH (09:11)
[2017-07-19] MEDS: Nicotine 21 MG/24 Hr Patch TRDERM SCH (09:12)
[2017-07-19] MEDS ORDERED: Clindamycin Phosphate 900 MG in Dextrose 5% in Water 100 ML IV SCH ×2 (11:00)
== END 2017-07-19 10:25 | disposition home or self-care (01) | DRG 149 ==
LOC: JD.ED 04:14 → JD.MS 07:26
PROVIDERS: ADMIT Internal Medicine Cardiovascular Disease; ATTEND Internal Medicine Cardiovascular Disease
DX: R42 Dizziness and giddiness (principal); T81.4XXA Infection following a procedure, initial encounter; R51 Headache; Z88.0 Allergy status to penicillin; F17.210 Nicotine dependence, cigarettes, uncomplicated
CPT/HCPCS: 36415; 70450; 70450-26; 70551; 70551-26; 80048; 80053; 83735; 85025; 86140; 87040; 93005; 95992-GP; 96361; 96374; 96375; 97110-GP; 97162-GP; 97165-GO; 97530-GO; 99285; 99285-25; A9270-GY; J1200; J1885; J2405; J2765; J7030; J7042